=== PATIENT | female | born 1990 | race Caucasian/White ===

== ENCOUNTER 2025-01-11 00:02 | Emergency (ER) | payer MEDICAID ==
[~2025-01-11] VITALS: Ht 165.1 cm; Wt 91.0 kg
[2025-01-11 00:32] VITALS: O2SAT 97
[2025-01-11 01:34] LABS: BASOPHILS % 0.4 % (0.0-2.0); EOSINOPHILS % 1.8 % (0.0-5.0); HEMATOCRIT. 41.3 % (36.0-48.0); HEMOGLOBIN. 13.5 g/dL (12.0-16.0); LYMPHOCYTES % 12.4 % (20.0-50.0); MEAN CORPUSCULAR HEMOGLOBIN 26.8 pg (28.0-32.0); MEAN CORPUSCULAR HGB CONC 32.8 g/dL (31.0-37.0); MEAN PLATELET VOLUME 8.7 fl (7.4-10.4); MONOCYTES % 4.6 % (2.0-8.0); NEUTROPHILS % 80.8 % (40.0-76.0); PLATELET 273 x1000/uL (130-400); RED BLOOD CELL COUNT 5.03 mill/uL (4.2-5.4); RED CELL DISTRIBUTION WIDTH 13.4 % (11.6-14.6); WHITE BLOOD COUNT 12.7 x1000/uL (4.5-11.0)
[2025-01-11 01:51] LABS: CHLORIDE 103 mEq/L (98-107); POTASSIUM 3.6 mEq/L (3.5-5.1); SODIUM 138 mEq/L (136-145)
[2025-01-11 01:52] LABS: CALCIUM 9.3 mg/dL (8.7-10.4); CARBON DIOXIDE 24 mEq/L (21-32)
[2025-01-11 01:57] LABS: CREATININE 0.5 mg/dL (0.6-1.0); GLUCOSE 102 mg/dL (70-105); UREA NITROGEN BLOOD 14 mg/dL (9-23)
[2025-01-11 02:19] LABS: INFLUENZA TYPE A Presumptive Negative (Pres. Neg.); INFLUENZA TYPE B Presumptive Negative (Pres. Neg.)
[2025-01-11 02:22] LABS: HCG SCREEN NEGATIVE
[2025-01-11] MEDS ORDERED: AMOX1TAB16 MT (02:32)
[2025-01-11] MEDS ORDERED: DEXA2TAB MT (02:32)
[2025-01-11] MEDS ORDERED: IBUP-2029 MT (02:32)
[2025-01-11 02:55] VITALS: BP 131/93; PULSE 93; RESP 18; TEMP 37.3; O2SAT 98
== END 2025-01-11 02:57 | disposition home or self-care (01) ==
LOC: ER 00:02
DX: J02.9 Acute pharyngitis, unspecified (principal); E11.9 Type 2 diabetes mellitus without complications; I10 Essential (primary) hypertension; Z79.899 Other long term (current) drug therapy
CPT/HCPCS: 36415; 71045; 80048; 84703; 85025; 87430; 87804; 99284